=== PATIENT | male | born 1985 | race African-American/Black ===

== ENCOUNTER 2019-05-21 16:08 | Emergency (ER) | payer SELFPAY ==
[2019-05-21] MEDS ORDERED: Ketorolac Tromethamine 30 MG/ML VIAL ONE (17:07)
[2019-05-21] MEDS ORDERED: Clindamycin 150 MG CAP ONE (17:07)
[2019-05-21] MEDS ORDERED: Dexamethasone 10 MG/ML VIAL ONE (17:07)
== END 2019-05-21 18:25 | disposition home or self-care (01) ==
LOC: ERS 16:08
DX: K04.7 Periapical abscess without sinus (principal); L03.211 Cellulitis of face; F17.210 Nicotine dependence, cigarettes, uncomplicated
CPT/HCPCS: 96372; 99283; J1100; J1885

== ENCOUNTER 2019-10-08 20:39 | Emergency (ER) | payer SELFPAY | END 2019-10-08 20:58 | disposition home or self-care (01) | LOC: ERS 20:39 | DX: K02.9 Dental caries, unspecified (principal); F17.210 Nicotine dependence, cigarettes, uncomplicated | CPT/HCPCS: 99283 ==

== ENCOUNTER 2021-01-28 03:33 | Emergency (ER) | payer OTHER, SELFPAY ==
[2021-01-28] MEDS ORDERED: Acetaminophen 500 MG TAB ONE (03:49)
[2021-01-28 14:33] LABS: SARS-CoV-2 PCR by NAA Not Detected (NotDetected)
== END 2021-01-28 04:13 | disposition home health service (06) ==
LOC: ERS 03:33
DX: R50.9 Fever, unspecified (principal); R05 Cough; R09.81 Nasal congestion; Z20.822 Contact with and (suspected) exposure to COVID-19; F17.210 Nicotine dependence, cigarettes, uncomplicated
CPT/HCPCS: 87635; 99283; U0003; U0005

== ENCOUNTER 2021-03-17 19:11 | Emergency (ER) | payer SELFPAY | END 2021-03-17 22:23 | disposition home or self-care (01) | LOC: ERS 19:11 | DX: R51.9 Headache, unspecified (principal); F17.210 Nicotine dependence, cigarettes, uncomplicated | CPT/HCPCS: 99283 ==

== ENCOUNTER 2023-12-06 15:54 | Emergency (ER) | payer SELFPAY ==
[2023-12-06] MEDS ORDERED: Acetaminophen 500 MG TAB ONE (16:16)
[2023-12-06] MEDS ORDERED: Ondansetron ODT 4 MG TAB ONE (16:16)
[2023-12-06 17:23] LABS: Influenza A by NAA Not Detected (NotDetected); Influenza B by NAA Not Detected (NotDetected); SARS-CoV-2 NAA Rapid Test Not Detected (NotDetected)
== END 2023-12-06 16:45 | disposition home or self-care (01) ==
LOC: ERS 15:54
DX: J11.1 Influenza due to unidentified influenza virus with other respiratory manifestations (principal); F17.210 Nicotine dependence, cigarettes, uncomplicated
CPT/HCPCS: 99284; Q0162